=== PATIENT | male | born 1990 | race Caucasian/White ===

== ENCOUNTER 2016-08-31 02:22 | Emergency (ER) | payer BC ==
[~2016-08-31] VITALS: Ht 175.3 cm; Wt 85.3 kg
[2016-08-31 06:14] VITALS: BP 143/90
== END 2016-08-31 04:30 | disposition home or self-care (01) ==
LOC: ER 02:22
DX: S20.02XA Contusion of left breast, initial encounter (principal); S20.212A Contusion of left front wall of thorax, initial encounter; F17.200 Nicotine dependence, unspecified, uncomplicated; V86.59XA Driver of other special all-terrain or other off-road motor vehicle injured in nontraffic accident, initial encounter; Y93.89 Activity, other specified; Y92.89 Other specified places as the place of occurrence of the external cause; Y99.8 Other external cause status
CPT/HCPCS: 71100; 99284; 99406; A4606; Z7610